=== PATIENT | female | born 1970 | race Caucasian/White ===

== ENCOUNTER 2020-12-02 07:59 | Inpatient (IN) | payer BC, OTHER ==
[~2020-12-02] VITALS: Ht 172.7 cm; Wt 109.3 kg
[2020-12-02] MEDS ORDERED: ONDANSETRON ODT 4 MG ONE (08:46)
--- NOTE | 2020-12-02 08:53 | NUR ---
PATIENT BIB [facility]. ABDOMINAL PAIN, DIZZINES, CONSTIPATION. 10/10 PAIN. SYNCOPAL EPISODE WHEN MOVED WITNESSED. SOME HYPOTENSION REPORTED. ON MONITOR, RAILS UP. ZOFRAN IV.
[2020-12-02] MEDS ORDERED: ONDANSETRON ODT 4 MG PO ONE (09:00)
[2020-12-02] MEDS ORDERED: PLEASE ENTER HEIGHT AND WEIGHT MC SCH (09:00)
[2020-12-02] MEDS ORDERED: LISI-170 PO (09:06)
[2020-12-02] MEDS ORDERED: OMEP-110 PO (09:06)
[2020-12-02] MEDS ORDERED: TRAM100T13 PO (09:06)
[2020-12-02] MEDS ORDERED: VENL150C PO (09:06)
[2020-12-02] MEDS ORDERED: CYCL7.5T25 PO (09:06)
--- NOTE | 2020-12-02 09:15 | NUR ---
CLEANED PATIENT OF VERY LARGE QUANTITY OF LOOSE STOOL FROM BRA LINE TO BACK OF KNEES. PATIENT IN CLEAN LINENS, GOWN
[2020-12-02] MEDS ORDERED: SODIUM CHLORIDE 0.9% 1,000ML IVBOLUS ONE (09:30)
--- NOTE | 2020-12-02 09:49 | NUR ---
LAB AND XRAY IN ROOM
--- NOTE | 2020-12-02 09:54 | NUR ---
called for update. let him know that patient having a battery of tests ordered and that currently she is calm and doing well in bed while we run tests on stool, blood work and radiology tests. he states he will call back in an hour.
[2020-12-02 10:08] LABS: MEAN CORPUSCULAR HEMOGLOBIN 21.4 pg (27.0-34.8); MEAN CORPUSCULAR HGB CONC 31.7 g/dL (32.4-35.8); MEAN PLATELET VOLUME 7.2 fL (7.4-10.4); PLATELET COUNT 354 x10^3/uL (130-400); RED BLOOD COUNT 5.81 x10^6/uL (3.82-5.3); RED CELL DISTRIBUTION WIDTH 18.6 % (9.6-15.2)
[2020-12-02 10:19] LABS: CLOSTRIDIUM DIFFICILE ANTIGEN NEGATIVE; CLOSTRIDIUM DIFFICILE TOXIN NEGATIVE (Negative)
[2020-12-02 10:20] LABS: ALANINE AMINOTRANSFERASE 15 U/L (12-78); ALBUMIN 3.7 g/dL (3.4-5.0); ANION GAP 14 mmol/L (5-15); CALCIUM 8.7 mg/dL (8.5-10.1); CHLORIDE 104 mmol/L (98-107)
[2020-12-02 10:23] LABS: ALKALINE PHOSPHATASE 60 U/L (45-117); BILIRUBIN,TOTAL 0.3 mg/dL (0.2-1.0); CREATININE 1.58 mg/dL (0.55-1.02); TOTAL PROTEIN 7.7 g/dL (6.4-8.2); TROPONIN I < 0.015 ng/mL (0.000-0.045)
[2020-12-02 10:28] LABS: BAND#(MANUAL) 0.57 x10^3/uL; BANDS%(MANUAL) 2 % (0-7)
[2020-12-02 10:29] LABS: <PLATELET ESTIMATE> ADEQUATE; <PLT MORPHOLOGY> NORMAL PLT MORPH; ANISOCYTOSIS 1+; HYPOCHROMIA 1+; LYMPHS% (MANUAL) 6 % (22-44); MICROCYTOSIS 2+; MONOS% (MANUAL) 6 % (2-9); OVALOCYTES 1+; SEG#(MANUAL) 24.34 x10^3/uL (1.8-6.8); SEGS% (MANUAL) 86 % (42-75)
[2020-12-02 10:30] LABS: PMNS WITH VACUOLES 1+
[2020-12-02] MEDS ORDERED: PIPERACILLIN/TAZO 3.375 GM in DEXTROSE 5% 50 ML IVPB ONE (11:00)
--- NOTE | 2020-12-02 11:03 | NUR ---
PATIENT HAS BEDSIDE COMMODE NEXT TO BED, WITNESSED THAT SHE CAN SAFETLY GET FROM BED TO BEDSIDE COMMODE. GOING FREQUENTLY SMELLY LIQUID STOOL. ON MONITOR, VSS. [id number]
--- NOTE | 2020-12-02 11:23 | NUR ---
CLEANED PATIENT OF STOOL, CLEANED LINENS.
[2020-12-02] MEDS ORDERED: ONDANSETRON 2MG/ML, 2ML ONE (11:36)
[2020-12-02] MEDS ORDERED: MORPHINE SULFATE 4 MG/ML, 1ML ONE (11:36)
--- NOTE | 2020-12-02 11:58 | NUR ---
dr hunter here talking to patient. updated.
[2020-12-02] MEDS ORDERED: MORPHINE SULFATE 4 MG/ML, 1ML IVPush PRN (12:00)
[2020-12-02] MEDS ORDERED: ONDANSETRON 2MG/ML, 2ML IVPush ONE (12:00)
[2020-12-02] MEDS ORDERED: MELATONIN 5 MG TABLET PO PRN (12:30)
[2020-12-02] MEDS ORDERED: ACETAMINOPHEN 325 MG TABLET PO PRN (12:30)
[2020-12-02] MEDS ORDERED: ONDANSETRON 2MG/ML, 2ML IVPush PRN (12:30)
--- NOTE | 2020-12-02 12:32 | NUR ---
updated that patient to stay overnight and will be admitted. shows understanding. let patient know
[2020-12-02] MEDS ORDERED: FAMOTIDINE 20 MG TABLET PO PRN (13:00)
--- NOTE | 2020-12-02 13:12 | NUR ---
report called to SADAF Magaña. patient in bed, vss. ready for transport upstairs / admission to hospital
[2020-12-02] MEDS: LACTATED RINGERS 1,000 ML IV SCH ×2 (13:55→23:27)
[2020-12-02 14:03] VITALS: BP 94/61
[2020-12-02 14:23] VITALS: BP 96/61
[2020-12-02] MEDS ORDERED: INFLIXIMAB 100 MG IV ONE (15:30)
[2020-12-02] MEDS: morphine SULFATE 10 MG/ML, 1ML IVPush PRN ×3 (16:04→23:27)
[2020-12-02 16:08] LABS: HCT (SEDRATE) 34.3 % (34.6-47.8)
[2020-12-02 16:24] LABS: C-REACTIVE PROTEIN, QUANT 4.1 mg/dL (0.02-0.49)
[2020-12-02 19:15] VITALS: BP 105/68
[2020-12-02] MEDS: PIPERACILLIN/TAZO 3.375 GM in DEXTROSE 5% 50 ML IVPB SCH (19:30)
[2020-12-03 00:23] VITALS: BP 96/56
[2020-12-03] MEDS: PIPERACILLIN/TAZO 3.375 GM in DEXTROSE 5% 50 ML IVPB SCH ×3 (02:29→20:34)
[2020-12-03] MEDS: morphine SULFATE 10 MG/ML, 1ML IVPush PRN ×4 (02:48→21:51)
[2020-12-03 06:02] LABS: BASOPHILS % (AUTO) 0 % (0-1); EOSINOPHILS % (AUTO) 1 % (1-7); LYMPHOCYTES % (AUTO) 13 % (22-44); MEAN CORPUSCULAR HEMOGLOBIN 22.1 pg (27.0-34.8); MEAN CORPUSCULAR HGB CONC 32.5 g/dL (32.4-35.8); MEAN PLATELET VOLUME 7.2 fL (7.4-10.4); MONOCYTES % (AUTO) 8 % (2-9); NEUTROPHILS % (AUTO) 78 % (42-75); PLATELET COUNT 292 x10^3/uL (130-400); RED BLOOD COUNT 4.65 x10^6/uL (3.82-5.3); RED CELL DISTRIBUTION WIDTH 18.8 % (9.6-15.2)
[2020-12-03 06:14] LABS: ALBUMIN 3.1 g/dL (3.4-5.0); ANION GAP 8 mmol/L (5-15); CALCIUM 7.9 mg/dL (8.5-10.1); CHLORIDE 106 mmol/L (98-107)
[2020-12-03 06:17] LABS: ALANINE AMINOTRANSFERASE 13 U/L (12-78); ALKALINE PHOSPHATASE 47 U/L (45-117); BILIRUBIN,TOTAL 0.6 mg/dL (0.2-1.0); TOTAL PROTEIN 6.6 g/dL (6.4-8.2)
[2020-12-03 09:25] VITALS: BP 102/65
[2020-12-03] MEDS: LACTATED RINGERS 1,000 ML IV SCH (10:30)
[2020-12-03] MEDS: CYCLOBENZAPRINE 10 MG TABLET PO SCH (10:31)
[2020-12-03] MEDS: VENLAFAXINE XR 37.5MG CAP.ER.24H PO SCH (10:31)
[2020-12-03 13:23] VITALS: BP 121/73
[2020-12-03] MEDS ORDERED: ICN HYDROCORTISONE 1 MG/ML IV IV ONE (15:30)
[2020-12-03] MEDS ORDERED: HYDROCORTISONE 250 MG/2 ML IVPush ONE (19:30)
[2020-12-03] MEDS ORDERED: FILTER 1.2 MICRON IV ONE (19:30)
[2020-12-03 19:38] VITALS: BP 122/80
[2020-12-03] MEDS ORDERED: INFLIXIMAB ABDA IV ONE (20:00)
[2020-12-03] MEDS ORDERED: INFLIXIMAB IV ONE (20:00)
[2020-12-03] MEDS ORDERED: SODIUM CHLORIDE 0.9% IV ONE ×2 (20:00)
[2020-12-04 00:17] VITALS: BP 115/76
[2020-12-04] MEDS: morphine SULFATE 10 MG/ML, 1ML IVPush PRN (01:15)
[2020-12-04] MEDS: PIPERACILLIN/TAZO 3.375 GM in DEXTROSE 5% 50 ML IVPB SCH (04:20)
[2020-12-04 05:01] LABS: ANION GAP 9 mmol/L (5-15); BASOPHILS % (AUTO) 0 % (0-1); CHLORIDE 104 mmol/L (98-107); CREATININE 0.78 mg/dL (0.55-1.02); EOSINOPHILS % (AUTO) 0 % (1-7); LYMPHOCYTES % (AUTO) 12 % (22-44); MEAN CORPUSCULAR HEMOGLOBIN 22.2 pg (27.0-34.8); MEAN CORPUSCULAR HGB CONC 32.4 g/dL (32.4-35.8); MEAN PLATELET VOLUME 6.9 fL (7.4-10.4); MONOCYTES % (AUTO) 3 % (2-9); NEUTROPHILS % (AUTO) 84 % (42-75); PLATELET COUNT 276 x10^3/uL (130-400); RED BLOOD COUNT 4.22 x10^6/uL (3.82-5.3); RED CELL DISTRIBUTION WIDTH 18.7 % (9.6-15.2)
[2020-12-04 07:46] VITALS: BP 103/60
[2020-12-04] MEDS: VENLAFAXINE XR 37.5MG CAP.ER.24H PO SCH (10:09)
[2020-12-04] MEDS: CYCLOBENZAPRINE 10 MG TABLET PO SCH (10:09)
[2020-12-04] MEDS ORDERED: DIPHENHYDRAMINE 50 MG/ML, 1ML IVPush ONE (10:30)
[2020-12-04 14:48] VITALS: BP 130/84
== END 2020-12-04 18:13 | disposition home or self-care (01) | DRG 386 ==
LOC: ED 11:00 → EDIP 11:27 → SUATTDRO 11:45 → ED 12:25 → 3N 13:35
PROVIDERS: ADMIT Internal Medicine; ATTEND Internal Medicine
DX: K51.90 Ulcerative colitis, unspecified, without complications (principal); E87.1 Hypo-osmolality and hyponatremia; E87.2 Acidosis; N17.9 Acute kidney failure, unspecified; D72.829 Elevated white blood cell count, unspecified; A08.4 Viral intestinal infection, unspecified; E86.1 Hypovolemia; E87.6 Hypokalemia; G47.00 Insomnia, unspecified; G89.29 Other chronic pain; I10 Essential (primary) hypertension; K21.9 Gastro-esophageal reflux disease without esophagitis; M79.7 Fibromyalgia; F32.9 Major depressive disorder, single episode, unspecified; I95.9 Hypotension, unspecified; M54.9 Dorsalgia, unspecified; R55 Syncope and collapse; Z79.899 Other long term (current) drug therapy
CPT/HCPCS: 36415; 71045; 74177; 80048; 80053; 80299; 82397; 82728; 83540; 83550; 83735; 83993; 84100; 84484; 85025; 85651; 86140; 87046; 87324; 87427; 89055; 93005; 96361; 96365; 96375; 99285; G0378; J1720; J1745; J2405; J2543; Q0162; J1200; J2270; J7030; J7050; J7120; Q5104